=== PATIENT | male | born 1970 | race Caucasian/White ===

== ENCOUNTER 2019-02-06 15:48 | Emergency (ER) | payer OTHER ==
[2019-02-06] MEDS ORDERED: Tetracaine HCl/PF 0.5% 4 ML Bottle EYEBOTH ONE (16:04)
--- NOTE | 2019-02-06 16:06 | EDM.PDOC ---
ED HPI GENERAL MEDICAL PROBLEM - General Chief Complaint: Eye Problems Stated Complaint: FOREIGN OBJECT IN EYE Time Seen by Provider: 02/06/19 16:04 Source of Information: Reports: Patient History Limitations: Reports: No Limitations - History of Present Illness INITIAL COMMENTS - FREE TEXT/NARRATIVE: HISTORY AND PHYSICAL: History of present illness: Review of systems: As per history of present illness and below otherwise all systems reviewed and negative. Past medical history: As per history of present illness and as reviewed below otherwise noncontributory. Surgical history: As per history of present illness and as reviewed below otherwise noncontributory. Social history: See social history for further information Family history: As per history of present illness and as reviewed below otherwise noncontributory. Physical exam: General: Well-developed and well-nourished 48 showed male. Alert and oriented. Nontoxic appearing and in no acute distress. HEENT: Atraumatic, normocephalic, pupils equal and reactive bilaterally, negative for conjunctival pallor or scleral icterus, mucous membranes moist, trachea midline. No drooling or trismus noted. No meningeal signs. No hot potato voice noted. Lungs: Clear to auscultation, breath sounds equal bilaterally, chest nontender. Heart: S1S2, regular rate and rhythm without overt murmur Abdomen: Soft, nondistended, nontender. Skin: Intact, warm, dry. No lesions or rashes noted. Extremities: Atraumatic, moves all extremities per self without difficulty or deficits, negative for cords or calf pain. Neurovascular unremarkable. Neuro: Awake, alert, oriented. Cranial nerves II through XII unremarkable. Cerebellum unremarkable. Motor and sensory unremarkable throughout. Exam nonfocal. Notes: Supportive care measures were reviewed and discussed. Voices understanding and is agreeable to plan of care. Denies any further questions or concerns at this time. Diagnostics: Therapeutics: Prescription: Impression: Hypertension Plan: Definitive disposition and diagnosis as appropriate pending reevaluation and review of above. left eye Pain Score (Numeric/FACES): 8 - Related Data Allergies Allergy/AdvReac Type Severity Reaction Status Date / Time naproxen Allergy Blisters Verified 02/06/19 15:57 Home Meds: Home Meds . [No Known Home Meds] 02/06/19 [History] Past Medical History Cardiovascular History: Reports: Hypertension - Infectious Disease History Infectious Disease History: Reports: Chicken Pox Social & Family History - Family History Family Medical History: Noncontributory Cardiac: Reports: CAD, Hypertension, [place] Endocrine/Metabolic: Reports: Diabetes, Type I Oncologic: Reports: Other (See Below) Other Oncologic Family History: Cancer - Tobacco Use Smoking Status *Q: Never Smoker - Recreational Drug Use Recreational Drug Use: No Course - Vital Signs Last Recorded V/S: Last Vital Signs Temp 98.4 F 02/06/19 15:55 Pulse 76 02/06/19 15:55 Resp 16 02/06/19 15:55 BP 161/111 H 02/06/19 15:55 Pulse Ox 94 L 02/06/19 15:55 - Orders/Labs/Meds Orders: Active Orders 24 hr Category Date Time Status Visual Acuity [Vision Test] [RC] ASDIRECTED Care 02/06/19 16:05 Active Meds: Medications Discontinued Medications Generic Name Dose Route Start Last Admin Trade Name Freq PRN Reason Stop Dose Admin Tetracaine HCl 1 ml 02/06/19 16:04 Tetracaine 0.5% Steri-Unit Nyasia EYEBOTH 02/06/19 16:05 ASDIRECTED ONE Departure - Discharge Information Referrals: Sanjuana Gill DO [Primary Care Provider] - Forms: ED Department Discharge - My Orders Last 24 Hours: My Active Orders 02/06/19 16:05 Visual Acuity [Vision Test] [RC] ASDIRECTED - Assessment/Plan Last 24 Hours: My Active Orders 02/06/19 16:05 Visual Acuity [Vision Test] [RC] ASDIRECTED
--- NOTE | 2019-02-06 16:36 | EDM.PDOC ---
ED HPI GENERAL MEDICAL PROBLEM - General Chief Complaint: Eye Problems Stated Complaint: FOREIGN OBJECT IN EYE Time Seen by Provider: 02/06/19 16:04 Source of Information: Reports: Patient - History of Present Illness INITIAL COMMENTS - FREE TEXT/NARRATIVE: HISTORY AND PHYSICAL: History of present illness: pt was using a lawn blower last night, he did not feel any arm body last night he was doing well when he went to bed he awoke with foreign body sensation and has had this since awakening No visual change no fever nausea vomiting chills sweats left eye is affected no visual change Review of systems: As per history of present illness and below otherwise all systems reviewed and negative. Past medical history: As per history of present illness and as reviewed below otherwise noncontributory. Surgical history: As per history of present illness and as reviewed below otherwise noncontributory. Social history: No reported history of drug or alcohol abuse. Family history: As per history of present illness and as reviewed below otherwise noncontributory. Physical exam: HEENT: Atraumatic, normocephalic, pupils reactive, negative for conjunctival pallor or scleral icterus, mucous membranes moist, throat clear, neck supple, nontender, trachea midline. Eyes sclerae injected there is no fluorescein uptake with Wood's lamp exam, right eye is clear Lungs: Clear to auscultation, breath sounds equal bilaterally, chest nontender. Heart: S1S2, regular, negative for clicks, rubs, or JVD. Abdomen: Soft, nondistended, nontender. Negative for masses or hepatosplenomegaly. Negative for costovertebral tenderness. Pelvis: Stable nontender. Genitourinary: Deferred. Rectal: Deferred. Extremities: Atraumatic, negative for cords or calf pain. Neurovascular unremarkable. Neuro: Awake, alert, oriented. Cranial nerves II through XII unremarkable. Cerebellum unremarkable. Motor and sensory unremarkable throughout. Exam nonfocal. Diagnostics: Wood's lamp/fluorescein ] Therapeutics: [ tetracaine Erythromycin ointment ] Impression: [Conjunctivitis] Definitive disposition and diagnosis as appropriate pending reevaluation and review of above. left eye Pain Score (Numeric/FACES): 8 - Related Data Allergies Allergy/AdvReac Type Severity Reaction Status Date / Time naproxen Allergy Blisters Verified 02/06/19 15:57 Home Meds: Home Meds . [No Known Home Meds] 02/06/19 [History] Past Medical History Cardiovascular History: Reports: Hypertension - Infectious Disease History Infectious Disease History: Reports: Chicken Pox Social & Family History - Family History Family Medical History: Noncontributory Cardiac: Reports: CAD, Hypertension, [place] Endocrine/Metabolic: Reports: Diabetes, Type I Oncologic: Reports: Other (See Below) Other Oncologic Family History: Cancer - Tobacco Use Smoking Status *Q: Never Smoker - Recreational Drug Use Recreational Drug Use: No ED ROS GENERAL - Review of Systems Review Of Systems: See Below ED EXAM, GENERAL - Physical Exam Exam: See Below Course - Vital Signs Last Recorded V/S: Last Vital Signs Temp 98.4 F 02/06/19 15:55 Pulse 76 02/06/19 15:55 Resp 16 02/06/19 15:55 BP 161/111 H 02/06/19 15:55 Pulse Ox 94 L 02/06/19 15:55 - Orders/Labs/Meds Orders: Active Orders 24 hr Category Date Time Status Visual Acuity [Vision Test] [RC] ASDIRECTED Care 02/06/19 16:05 Active Erythromycin Base [Erythromycin 0.5% Ophth Oint] Med 02/06/19 16:44 Once 1 gm EYEBOTH ONETIME ONE Medication Orders Erythromycin (Erythromycin 0.5% Ophth Oint) 1 gm EYEBOTH ONETIME ONE Stop: 02/06/19 16:45 Meds: Medications Generic Name Dose Route Start Last Admin Trade Name Freq PRN Reason Stop Dose Admin Erythromycin 1 gm 02/06/19 16:44 Erythromycin 0.5% Ophth Oint EYEBOTH 02/06/19 16:45 ONETIME ONE Discontinued Medications Generic Name Dose Route Start Last Admin Trade Name Freq PRN Reason Stop Dose Admin Tetracaine HCl 1 ml 02/06/19 16:04 02/06/19 16:38 Tetracaine 0.5% Steri-Unit Nyasia EYEBOTH 02/06/19 16:05 1 ml ASDIRECTED ONE Administration Departure - Departure Time of Disposition: 16:45 Disposition: Home, Self-Care 01 Condition: Good Clinical Impression: Conjunctivitis - Discharge Information Referrals: Sanjuana Gill DO [Primary Care Provider] - Forms: ED Department Discharge Additional Instructions: Medication as prescribed Return if symptoms persist or worsen Follow-up with ophthalmology, symptoms persist past 48 hours or if you develop light sensitivity or visual change [facility] [address] [place] [address] The following information is given to patients seen in the emergency department who are being discharged to home. This information is to outline your options for follow-up care. We provide all patients seen in our emergency department with a follow-up referral. The need for follow-up, as well as the timing and circumstances, are variable depending upon the specifics of your emergency department visit. If you don't have a primary care physician on staff, we will provide you with a referral. We always advise you to contact your personal physician following an emergency department visit to inform them of the circumstance of the visit and for follow-up with them and/or the need for any referrals to a consulting specialist. The emergency department will also refer you to a specialist when appropriate. This referral assures that you have the opportunity for follow-up care with a specialist. All of these measure are taken in an effort to provide you with optimal care, which includes your follow-up. Under all circumstances we always encourage you to contact your private physician who remains a resource for coordinating your care. When calling for follow-up care, please make the office aware that this follow-up is from your recent emergency room visit. If for any reason you are refused follow-up, please contact the [facility] emergency department at and asked to speak to the emergency department charge nurse. - My Orders Last 24 Hours: My Active Orders 02/06/19 16:44 Erythromycin Base [Erythromycin 0.5% Ophth Oint] 1 gm EYEBOTH ONETIME ONE - Assessment/Plan Last 24 Hours: My Active Orders 02/06/19 16:44 Erythromycin Base [Erythromycin 0.5% Ophth Oint] 1 gm EYEBOTH ONETIME ONE
[2019-02-06] MEDS ORDERED: Erythromycin Base 0.5% Ophth Oint 1 GM Tube EYEBOTH ONE (16:44)
== END 2019-02-06 17:03 | disposition home or self-care (01) ==
LOC: MW.ED 15:48
DX: H10.9 Unspecified conjunctivitis (principal); I10 Essential (primary) hypertension; Z88.8 Allergy status to other drugs, medicaments and biological substances
CPT/HCPCS: 99283; A9270

== ENCOUNTER 2022-11-26 19:05 | Emergency (ER) | payer SELFPAY ==
[2022-11-26] MEDS ORDERED: Losartan 50 MG Tab PO ONE (19:25)
== END 2022-11-26 19:49 ==
LOC: MW.ED 19:05
DX: Z02.89 Encounter for other administrative examinations (principal); I10 Essential (primary) hypertension; Z88.6 Allergy status to analgesic agent
CPT/HCPCS: 99283; A9270

== ENCOUNTER 2024-11-02 06:02 | Emergency (ER) | payer BC, OTHER ==
[2024-11-02 08:35] LABS: BASOPHILS ABSOLUTE AUTO 0.05 K/uL (0.00-0.20); BASOPHILS PERCENT AUTO 0.9 % (0.0-1.0); EOSINOPHILS PERCENT AUTO 1.8 % (0.0-6.0); HEMATOCRIT 41.7 % (42.0-52.0); IMMATURE GRAN ABSOLUTE AUTO 0.02 K/uL (0.00-0.05); IMMATURE GRAN PERCENT AUTO 0.4 % (0.0-0.4); LYMPHOCYTES ABSOLUTE AUTO 1.08 K/uL (1.00-4.80); LYMPHOCYTES PERCENT AUTO 19.1 % (24.0-44.0); MEAN CORPUSCULAR HEMOGLOBIN 30.2 pg (28.0-32.0); MEAN CORPUSCULAR VOLUME 84.1 fL (83.0-99.0); MEAN PLATELET VOLUME 10.4 fL (9.4-12.4); MONOCYTES ABSOLUTE AUTO 0.46 K/uL (0.00-0.80); MONOCYTES PERCENT AUTO 8.2 % (0.0-8.0); NEUTROPHILS ABSOLUTE AUTO 3.93 K/uL (1.80-7.70); NEUTROPHILS PERCENT AUTO 69.6 % (41.0-71.0); PLATELET COUNT,PLT 151 K/uL (150-400); RED BLOOD CELL COUNT 4.96 M/uL (4.52-5.90); WHITE BLOOD CELL COUNT,WBC 5.64 K/uL (3.9-11.3)
[2024-11-02 09:01] LABS: A/G RATIO 1.1 (0.9-1.6); ALBUMIN 3.7 g/dL (3.4-5.0); BILIRUBIN TOTAL 0.7 mg/dL (0.2-1.0); EST CRCL DRUG DOSING (CG) 106.09 mL/min; POTASSIUM,K 3.9 mmol/L (3.5-5.1); PROTEIN TOTAL,TP 7.1 g/dL (6.4-8.2)
[2024-11-02 10:02] LABS: APPEARANCE,URINE CLEAR; BILIRUBIN,URINE NEGATIVE (NEGATIVE); COLOR,URINE YELLOW; GLUCOSE,URINE NEGATIVE (NEGATIVE); KETONES,URINE TRACE mg/dL (NEGATIVE); LEUKOCYTE ESTERASE,URINE SMALL (NEGATIVE); NITRITE,URINE NEGATIVE (NEGATIVE); OCCULT BLOOD,URINE NEGATIVE (NEGATIVE); PH,URINE 5.5 (5.0-8.0); PROTEIN,URINE NEGATIVE (NEGATIVE); UROBILINOGEN,URINE 0.2 EU/dL (<2.0)
[2024-11-02 10:09] LABS: BACTERIA,URINE 1+ (NEGATIVE); EPITHELIAL CELLS,URINE MODERATE (NONE-FEW); RBC,URINE 0-1 (0-2/HPF)
[2024-11-02] MEDS: Baclofen 10 MG Tab PO ONE (11:46)
[2024-11-02] MEDS: Sodium Chloride 0.9% 1,000 ML IV ONE (11:49)
[2024-11-02] MEDS: hydrALAZINE 20 MG/ML SDV IVPUSH ONE ×4 (12:13→16:39)
[2024-11-02] MEDS: Ketorolac 30 MG/ML SDV IVPUSH ONE (12:37)
[2024-11-02] MEDS: fentaNYL 50 MCG/ML SDV IVPUSH ONE ×2 (12:55→20:50)
[2024-11-02] MEDS: Gadoteridol 279.3 MG/ML 20 ML SDV IVPUSH ONE (13:40)
[2024-11-02] MEDS: cloNIDine 0.1 MG Tab PO ONE (15:26)
[2024-11-02] MEDS: Hydrochlorothiazide/Losartan 12.5-50 mg Tab PO ONE (16:50)
[2024-11-03] MEDS ORDERED: Hydrochlorothiazide/Losartan 12.5-50 mg Tab PO ONE (16:33)
== END 2024-11-02 21:16 ==
LOC: MW.ED 06:02
DX: G54.4 Lumbosacral root disorders, not elsewhere classified (principal); M54.32 Sciatica, left side; R53.1 Weakness; I10 Essential (primary) hypertension; Z88.5 Allergy status to narcotic agent
CPT/HCPCS: 36415; 72131; 72158; 80053; 81001; 85025; 87086; 96374; 96375; 96376; 99285; A9270; A9579; J0360; J1100; J1885; J3010; J7030